=== PATIENT | male | born 1945 | race Caucasian/White ===

== ENCOUNTER 2021-09-21 09:05 | Observation (INO) | payer BC, MEDICARE ==
[2021-09-21] MEDS ORDERED: Lactated Ringers 1,000 ML IV ONE (09:08)
[2021-09-21] MEDS: Sodium Chloride 0.9% 10 ML Syringe FLUSH PRN ×2 (09:34→11:45)
[2021-09-21] MEDS ORDERED: Bacitracin Oint 1 GM U/D Packet TOP ONE (10:34)
[2021-09-21] MEDS ORDERED: Iopamidol 755 Mg/ML 100 ML Bottle IV SCH (11:15)
[2021-09-21] MEDS ORDERED: Sodium Chloride 0.9% 100 ML IV SCH (11:15)
[2021-09-21] MEDS ORDERED: Doxycycline 100 MG in Sodium Chloride 0.9% 100 ML IV ONE ×2 (12:04→14:00)
[2021-09-21] MEDS ORDERED: Sodium Chloride 0.9% 1,000 ML IV SCH (13:00)
[2021-09-21] MEDS ORDERED: LORazepam 2 MG/ML SDV IVPUSH PRN (13:36)
[2021-09-21] MEDS ORDERED: Acetaminophen 325 MG Tab PO PRN (13:36)
[2021-09-21] MEDS ORDERED: Ondansetron 4 MG/2 ML SDV IV PRN (13:36)
[2021-09-21] MEDS ORDERED: Melatonin 3 MG Tab PO PRN (13:36)
[2021-09-21] MEDS ORDERED: Albuterol 0.083% 2.5 MG/3 ML Neb Soln NEB PRN (13:36)
[2021-09-21] MEDS ORDERED: Magnesium Hydroxide 400 MG/5 ML Susp 30 ML Cup PO PRN (13:36)
[2021-09-21] MEDS ORDERED: Ondansetron 4 MG Tab.DIS PO PRN (13:36)
[2021-09-21] MEDS: Sodium Chloride 0.9% 1,000 ML IV SCH (17:16)
[2021-09-21] MEDS: atorvaSTATin 20 MG Tab PO SCH (21:59)
[2021-09-21] MEDS: Pantoprazole 40 MG Tab.CR PO SCH (21:59)
[2021-09-21] MEDS: Lactobacillus Rhamnosus GG (Probiotic) Cap PO SCH (21:59)
[2021-09-22] MEDS: Doxycycline 100 MG in Sodium Chloride 0.9% 100 ML IV SCH ×2 (02:55→13:06)
[2021-09-22] MEDS: Sodium Chloride 0.9% 1,000 ML IV SCH (03:02)
[2021-09-22] MEDS: Dutasteride 0.5 MG Cap PO SCH (08:13)
[2021-09-22] MEDS: Multivitamins with Iron/Calcium/Folic Acid/Minerals Tab PO SCH (08:13)
[2021-09-22] MEDS: Lactobacillus Rhamnosus GG (Probiotic) Cap PO SCH ×2 (08:13→21:35)
[2021-09-22] MEDS: Aspirin 81 MG Tab.Chew PO SCH (08:13)
[2021-09-22] MEDS: Tamsulosin 0.4 MG Cap.ER PO SCH (08:13)
[2021-09-22] MEDS: Cholecalciferol (Vitamin D3) 25 MCG Tab PO SCH (08:13)
[2021-09-22] MEDS: Fish Oil/Omega-3 Fatty Acids 1 Gm Cap PO SCH (08:14)
[2021-09-22] MEDS: Celecoxib 100 MG Cap PO SCH (08:14)
[2021-09-22] MEDS ORDERED: CELECOXIB 100 MG PO SCH (09:00)
[2021-09-22] MEDS ORDERED: Non-Formulary Medication 1 Each (Tamsulosin [Flomax] 0.4 MG Cap.Er) PO SCH (09:00)
[2021-09-22] MEDS ORDERED: Non-Formulary Medication 1 Each (Atenolol [Atenolol] 50 MG Tablet) PO SCH (09:00)
[2021-09-22] MEDS ORDERED: Non-Formulary Medication 1 Each (Dutasteride [Avodart] 0.5 MG Cap) PO SCH (09:00)
[2021-09-22] MEDS ORDERED: Non-Formulary Medication 1 Each (Atorvastatin Calcium [Lipitor] 40 MG Tablet) PO SCH (09:00)
[2021-09-22] MEDS ORDERED: Non-Formulary Medication 1 Each (Aspirin [Children's Aspirin] 81 MG Tab.Chew) PO SCH (09:00)
[2021-09-22] MEDS ORDERED: OMEGA PO SCH (09:00)
[2021-09-22] MEDS ORDERED: CHOLECALCIFEROL 25 MCG PO SCH (09:00)
[2021-09-22] MEDS ORDERED: FATTY ACIDS PO SCH (09:00)
[2021-09-22] MEDS: atorvaSTATin 20 MG Tab PO SCH (21:35)
[2021-09-22] MEDS: Pantoprazole 40 MG Tab.CR PO SCH (21:35)
[2021-09-23] MEDS: Doxycycline 100 MG in Sodium Chloride 0.9% 100 ML IV SCH (02:59)
[2021-09-23] MEDS: Aspirin 81 MG Tab.Chew PO SCH (08:21)
[2021-09-23] MEDS: Dutasteride 0.5 MG Cap PO SCH (08:21)
[2021-09-23] MEDS: Lactobacillus Rhamnosus GG (Probiotic) Cap PO SCH (08:21)
[2021-09-23] MEDS: Cholecalciferol (Vitamin D3) 25 MCG Tab PO SCH (08:21)
[2021-09-23] MEDS: Celecoxib 100 MG Cap PO SCH (08:21)
[2021-09-23] MEDS: Tamsulosin 0.4 MG Cap.ER PO SCH (08:21)
[2021-09-23] MEDS: Fish Oil/Omega-3 Fatty Acids 1 Gm Cap PO SCH (08:21)
[2021-09-23] MEDS: Multivitamins with Iron/Calcium/Folic Acid/Minerals Tab PO SCH (08:21)
[2021-09-23 09:58] VITALS: BP 118/64; PULSE 76
[2021-09-23] MEDS ORDERED: Doxycycline 100 MG Cap PO ONE (10:15)
[2021-09-26 15:10] LABS: HGE IGG TITER Negative (Neg:<1:64); HGE IGM TITER Negative (Neg:<1:20)
== END 2021-09-23 11:45 | disposition home or self-care (01) ==
LOC: JP.ED 09:05 → JP.MS 12:47 → INTOOBSV 12:47
PROVIDERS: ADMIT Internal Medicine; ATTEND Internal Medicine
DX: A69.20 Lyme disease, unspecified (principal); A77.49 Other ehrlichiosis; N17.9 Acute kidney failure, unspecified; R79.89 Other specified abnormal findings of blood chemistry; D72.829 Elevated white blood cell count, unspecified; R91.1 Solitary pulmonary nodule; R09.02 Hypoxemia; E78.00 Pure hypercholesterolemia, unspecified; I10 Essential (primary) hypertension; N40.0 Benign prostatic hyperplasia without lower urinary tract symptoms; Z88.0 Allergy status to penicillin; Z87.891 Personal history of nicotine dependence; Z20.822 Contact with and (suspected) exposure to COVID-19; Z79.899 Other long term (current) drug therapy
CPT/HCPCS: 36415; 71046; 71275; 80048; 80053; 81001; 83605; 83880; 85025; 85027; 85379; 85610; 85730; 86140; 86617; 86618; 86666; 87040; 87086; 93005; 93010; 96361; 96365; 96366; 99217; 99220; 99225; 99284; 99285; A9270; G0378; J3490; J7030; J7120; Q9967; U0002; 96360